=== PATIENT | male | born 1955 | race Caucasian/White ===

== ENCOUNTER 2019-06-25 11:04 | Emergency (ER) | payer MEDICARE ==
[~2019-06-25] VITALS: Ht 175.3 cm; Wt 87.4 kg
[2019-06-25 11:04] VITALS: Ht 175.3 cm; Wt 87.4 kg
[2019-06-25 12:39] LABS: ALBUMIN 3.7 g/dL (3.4-5.0); ALKALINE PHOSPHATASE 99 U/L (46-116); ALT (SGPT) 23 U/L (10-68); BILIRUBIN - TOTAL 0.55 mg/dL (0.2-1.3); CALC OSMOLALITY 284 mosm/kg (275-300); CALCIUM 9.2 mg/dL (8.5-10.1); CARBON DIOXIDE 27.9 mmol/L (21.0-32.0); CHLORIDE - SERUM 105 mmol/L (98-107); CKMB 2.1 U/L (0.0-3.6); CREATINE KINASE 107 UL (21-232); CREATININE - SERUM 0.9 mg/dL (0.6-1.3); GLUCOSE 126 mg/dL (74-106); INR 0.95 (0.85-1.17); MAGNESIUM - SERUM 2.2 mg/dL (1.8-2.4); POTASSIUM - SERUM 4.5 mmol/L (3.5-5.1); PROTEIN - SERUM 7.7 g/dL (6.4-8.2); PROTIME 12.2 SECONDS (11.6-15.0); SODIUM 140 mmol/L (136-145); THYROID STIMULATING HORMONE 2.63 uIU/mL (0.36-3.74); TROPONIN-I < 0.017 ng/mL (0.000-0.060); UREA NITROGEN 25 mg/dL (7-18); eGFR NON AFRICAN AMERICAN 90 mL/min (90-120)
[2019-06-25 12:41] LABS: HEMOGLOBIN 14.6 g/dL (13.5-17.5); LYMPHOCYTES 32.7 % (15-50); MCH 32.2 pg (26.0-34.0); MCHC 34.8 g/dL (31.0-37.0); MCV 92.7 fL (80.0-100.0); NEUTROPHILS 54.8 % (40-80); PLATELET COUNT 188 10x3/uL (130-400); RBC 4.53 10x6/uL (4.20-6.10); RDW 13.4 % (11.5-14.5); WBC 4.8 10x3/uL (4.8-10.8)
[2019-06-25] MEDS ORDERED: METOPROLOL TART50 MG PO (12:46)
[2019-06-25] MEDS ORDERED: BAYER CHEWABLE81 MG PO (12:46)
[2019-06-25] MEDS ORDERED: LASIX20 MG PO (12:46)
[2019-06-25] MEDS ORDERED: K-DUR20 MEQ PO (12:47)
[2019-06-25 15:26] VITALS: BP 148/74
== END 2019-06-25 15:56 | disposition other institution (70) ==
LOC: D.ER 11:04
PROVIDERS: Family Medicine
DX: I63.9 Cerebral infarction, unspecified (principal); I11.0 Hypertensive heart disease with heart failure; I50.9 Heart failure, unspecified